=== PATIENT | female | born 1945 | race Hispanic/Latino ===

== ENCOUNTER → 2024-03-10 | Outpatient (CLI) | payer OTHER | END | disposition home or self-care (01) | LOC: RAH 09:01 | PROVIDERS: ATTEND Family Medicine | DX: M85.88 Other specified disorders of bone density and structure, other site (principal) | CPT/HCPCS: 77080 ==

== ENCOUNTER 2025-09-13 02:25 | Emergency (ER) | payer OTHER, MEDICARE ==
[~2025-09-13] VITALS: Ht 157.5 cm; Wt 72.6 kg
--- NOTE | 2025-09-13 02:33 | ERN ---
General Chief Complaint: Seizure Stated Complaint: SEIZURE X 2 Time Seen by MD: 02:32 History of Present Illness Initial Comments 80-year-old female history of seizure disorder here for evaluation of seizures. As per EMS patient ran out of her Keppra yesterday and had two witnessed seizures that self resolved by itself. No fever no cough no shortness a breath no nausea vomiting diarrhea. No abdominal pain. Patient has a history of Parkinson's dementia. Allergies: Coded Allergies: No Known Drug Allergies (Unverified Allergy, Unknown, 12/21/16) Neuro: (+) seizure Physical Exam General Appearance: (+) no apparent distress Orientation: (+) alert Orientation Comment At baseline per family member at bedside Ear, Nose, Throat: (+) hearing grossly normal, (+) normal ENT inspection, (+) moist mucous membraine Neck: (+) normal inspection, (+) supple, (+) full range of motion Heart: (+) regular; (-) murmur Gastrointestinal: (+) soft, (+) non-tender Results Laboratory and Microbiology Lab and Micro Result Laboratory Tests Test 09/13/25 02:51 09/13/25 04:20 09/13/25 05:40 White Blood Count 7.1 K/uL (4.8-10.8) Red Blood Count 3.59 MIL/uL (4.00-5.50) L Hemoglobin 12.1 g/dL (12.0-16.0) Hematocrit 36.1 % (36-48) Mean Corpuscular Volume 100.6 fL (79-99) H Mean Corpuscular Hemoglobin 33.7 pg (27.0-33.0) H Mean Corpuscular Hemoglobin Concent 33.5 g/dL (32.0-36.0) Red Cell Distribution Width 12.2 % (11.0-15.5) Platelet Count 197 K/uL (130-400) Mean Platelet Volume 10.4 fL (7.5-10.5) Immature Granulocyte % (Auto) 0.3 % (0-1) Neutrophils (%) (Auto) 54.3 % (40.0-77.0) Lymphocytes (%) (Auto) 34.8 % (21.0-51.0) Monocytes (%) (Auto) 7.9 % (3.0-13.0) Eosinophils (%) (Auto) 2.4 % (0.0-8.0) Basophils (%) (Auto) 0.3 % (0.0-5.0) Neutrophils # (Auto) 3.8 K/uL (1.8-7.7) Lymphocytes # (Auto) 2.5 K/uL (1.0-4.8) Monocytes # (Auto) 0.6 K/uL (0.1-1.0) Eosinophils # (Auto) 0.17 K/uL (0.00-0.70) Basophils # (Auto) 0.02 K/uL (0.00-0.20) Absolute Immature Granulocyte (auto 0.02 K/uL (0-1) Nucleated Red Blood Cells 0.0 % (0.0-0.19) Sodium Level 140 mmol/L (136-145) Potassium Level 3.8 mmol/L (3.5-5.1) Chloride Level 102 mmol/L (101-111) Carbon Dioxide Level 27 mmol/L (21-32) Blood Urea Nitrogen 15 mg/dL (7-18) Creatinine 0.7 mg/dL (0.5-1.0) Glomerular Filtration Rate Calc 86 mL/min (>90) Random Glucose 165 mg/dL (70-105) H Lactic Acid Level 4.6 mmol/L (0.8-2.5) H 2.1 mmol/L (0.8-2.5) Total Calcium 8.8 mg/dL (8.5-10.1) Total Creatine Kinase 40 U/L (21-232) Urine Color LIGHT-YELLOW (YELLOW) Urine Appearance CLEAR (CLEAR) Urine pH 5.5 (5.0-8.0) Urine Specific Brent 1.018 (1.001-1.031) Urine Protein NEGATIVE mg/dL (NEGATIVE) Urine Glucose (UA) NEGATIVE mg/dL (NEGATIVE) Urine Ketones NEGATIVE mg/dL (NEGATIVE) Urine Occult Blood NEGATIVE (NEGATIVE) Urine Nitrate NEGATIVE (NEGATIVE) Urine Bilirubin NEGATIVE mg/dL (NEGATIVE) Urine Urobilinogen 0.2 mg/dL (0.2-1.0) Urine Leukocyte Esterase NEGATIVE Caren/uL MDM 80-year-old female here for evaluation of seizure. As she has not taken her Keppra in the past two days we will give her a loading dose of Keppra and send her home for follow up with the PCP to get a read per felt prescription of Keppra. Patient well-appearing no acute distress vital signs stable. Acting normally as per family member at bedside. ED Course Orders Procedure Category Date Status Time Urinalysis Profile LAB 09/13/25 Complete 02:33 Lactic Acid LAB 09/13/25 Complete 02:33 Creatine Kinase, Total LAB 09/13/25 Complete 02:33 Cbc With Differential LAB 09/13/25 Complete 02:33 Basic Metabolic Panel LAB 09/13/25 Complete 02:33 0.9%Nacl 1000ml (Ns PHA 09/13/25 In Process 1000ml) 03:00 Levetiracetam 500 PHA 09/13/25 In Process Mg/5 Ml Sd V (Keppra 5 06:00 Levetiracetam 500 PHA 09/13/25 Complete Mg/5 Ml Sd V (Keppra 5 03:25 0.9%Nacl 1000ml (Ns PHA 09/13/25 In Process 1000ml) 04:00 Lactic Acid (Removed) LAB 09/13/25 Complete 05:42 Current Medications Medications (Trade) Dose Ordered Sig/Keith Route PRN Reason Start Time Stop Time Status Last Admin Dose Admin Levetiracetam (kepPRA 500 MG/5 ML SD VIAL) 500 mg STK-MED ONCE IV 09/13/25 03:25 09/13/25 03:25 DC Levetiracetam 1000 mg/Sodium Chloride 100 ml @ 400 mls/hr Q12H IV 09/13/25 06:00 10/13/25 05:59 09/13/25 03:37 Sodium Chloride 1,000 ml @ 0 mls/hr Q0M IV 09/13/25 03:00 10/13/25 02:59 09/13/25 03:37 Sodium Chloride 1,000 ml @ 0 mls/hr Q0M IV 09/13/25 04:00 10/13/25 03:59 09/13/25 04:47 Vital Signs Date Time Temp Pulse Resp B/P (MAP) Pulse Ox O2 Delivery O2 Flow Rate FiO2 09/13/25 05:51 106 18 145/76 98 Nasal Cannula* 2 28 09/13/25 04:30 98.2 97 18 136/97 97 Nasal Cannula* 2 28 09/13/25 02:54 98.2 95 22 128/62 98 Room Air* 0 21 09/13/25 02:29 98.2 103 16 122/78 98 Room Air 0 DX & DISP Disposition: Discharge Departure Impression: Primary Impression: Seizure Condition: Stable Referrals: KENAN ARCHER MD (PCP) BRITT ALVARADO MD Sep 13, 2025 02:33
[2025-09-13 03:11] LABS: IMMATURE GRANULOCYTE ABSOLUTE 0.02 K/uL (0-1); NUCLEATED RED BLOOD CELLS 0.0 % (0.0-0.19); PLATELET COUNT (AUTO) 197 K/uL (130-400); RED BLOOD CELL COUNT(AUTO) 3.59 MIL/uL (4.00-5.50); RED CELL DISTRIBUTION WIDTH 12.2 % (11.0-15.5); WHITE BLOOD COUNT (AUTO) 7.1 K/uL (4.8-10.8)
[2025-09-13 03:20] LABS: CREATININE 0.7 mg/dL (0.5-1.0); GLOMERULAR FILTR. RATE CALC 86.0 mL/min (>90); GLUCOSE,RANDOM 165.0 mg/dL (70-105); SODIUM SERUM 140.0 mmol/L (136-145); UREA NITROGEN, BLOOD 15.0 mg/dL (7-18)
[2025-09-13 03:25] LABS: CREATINE KINASE, TOTAL 40.0 U/L (21-232)
[2025-09-13] MEDS: leveTIRACEtam 500 MG/5 ML SD V 1,000 MG in 0.9%NACL 100ML 100 ML IV SCH (03:37)
[2025-09-13] MEDS: 0.9%NACL 1000ML 1,000 ML IV SCH ×2 (03:37→04:47)
[2025-09-13 04:30] VITALS: TEMP 98.3
[2025-09-13 04:57] LABS: APPEARANCE,URINE CLEAR (CLEAR); GLUCOSE, URINE (UA) NEGATIVE (NEGATIVE); LEUKOCYTE ESTERASE ,URINE NEGATIVE Leu/uL (NEGATIVE); NITRATE,URINE NEGATIVE (NEGATIVE); OCCULT BLOOD,URINE NEGATIVE (NEGATIVE)
[2025-09-13 04:58] LABS: ADD UA MICROSCOPIC NO
[2025-09-13 05:51] VITALS: BP 145/76; PULSE 106; RESP 18; O2SAT 98
== END 2025-09-13 06:19 | disposition home or self-care (01) ==
LOC: EDH 02:25
DX: G40.909 Epilepsy, unspecified, not intractable, without status epilepticus (principal); F02.80 Dementia in other diseases classified elsewhere, unspecified severity, without behavioral disturbance, psychotic disturbance, mood disturbance, and anxiety; G20.A1 Parkinson's disease without dyskinesia, without mention of fluctuations
CPT/HCPCS: 99283; 96374; 82550; 80048; 85025; 83605 ×2; 81003; 36415; J1953 ×2; J7030